=== PATIENT | male | born 1990 | race Caucasian/White ===

== ENCOUNTER 2024-12-04 01:56 | Emergency (ER) | payer OTHER, SELFPAY ==
--- NOTE | ~2024-12-04 | XR_ITS ---
Left Hand Technique: PA, oblique, and lateral views were obtained. Clinical History: 20 swelling Findings: No acute fracture or dislocation is seen. Osseous alignment is anatomic. Joint spaces are p reserved. Probable mild soft tissue swelling at the lateral aspect of the hand. Impression: No osseous or articular abnormality. Mild lateral soft tissue swelling. Reviewed, dictated and finalized at location . Impression: No osseous or articular abnormality. Mild lateral soft tissue swelling.
[2024-12-04 02:01] VITALS: BP 132/76; PULSE 86; RESP 16; TEMP 36.2; O2SAT 100
--- OUTSIDE RECORDS SUMMARY | 2024-12-04 03:52 | XMS_ITS | Patient Health Summary ---
Author Organization [facility] [employer] Address [address] [place] [address] Care Team Providers Care Lead Inspector Name Role Phone Unavailable Primary Care Provider Unavailabl e Note from [facility],non-owned Affiliates and Associated Physician Practices is amultiple site organization consisting of ambulatory clinics and hospital sitesin [place], [place], [place] and [place]. This disclosure is being madepursuant to the Care Everywhere program and may not contain all information available regarding this patient. Last updated 18.[facility] [employer] Medications Be aware that medications may not be up to date on this document. Always verify current medications with the patient. No known medications Active Problems No known active problems Social History Tobacco Use Types Packs/Day Years Used Date Smoking Tobacco: Never Assessed Sex and Gender Information Value Date Recorded Sex Assigned at Not on file Gender Identity Not on file Sexual Orientation Not on file Last Filed Vital Signs Vital Sign Reading Time Taken Comments Blood Pressure 127/71 06/15/2019 2:12 AM CDT Pulse 83 06/15/2019 2:12 AM CDT Temperature 36.6 C (97.9 F) 06/15/2019 2:12 AM CDT Respiratory Rate 16 06/15/2019 2:12 AM CDT Oxygen Saturation 98% 06/15/2019 2:12 AM CDT Inhaled Oxygen Concentration - - Weight 86.2 kg (190 lb) 06/14/2019 11:30 PM CDT Height 175.3 cm (5' 9 ) 06/14/2019 11:30 PM CDT Body Mass Index 28.06 06/14/2019 11:30 PM CDT Procedures * CARDIAC EKG ORDER(Performed 06/16/2019) * URINALYSIS REFLEX MICROSCOPIC REFLEX CULTURE(Performed 06/15/2019) * COMPREHENSIVE METABOLIC PANEL(Performed 06/15/2019) * CBC W AUTO DIFFERENTIAL(Performed 06/15/2019) * EKG 12-LEAD(Performed 06/14/2019) Performed for Dizziness Results * CARDIAC EKG ORDER (06/16/2019 7:59 PM CDT) Narrative 06/16/2019 7:59 PM CDT Ordered by an unspecified provider. Scanned Document CARDIAC SERVICES ORD ERABLES * URINALYSIS REFLEX MICROSCOPIC REFLEX CULTURE (06/15/2019 12:02 AM CDT) Color UA Yellow Straw, Yellow 06/15/2019 12:27 AM CDT [facility] Clarity UA Clear Clear 06/15/2019 12:27 AM CDT [facility] Glucose UA Negative Negative 06/15/2019 12:27 AM CDT [facility] Bilirubin UA Negative Negative 06/15/2019 12:27 AM CDT [facility] Ketone UA Negative Negative 06/15/2019 12:27 AM CDT [facility] Specific [place] UA 1.015 1.005 - 1.030 06/15/2019 12:27 AM CDT [facility] Blood UA Negative Negative 06/15/2019 12:27 AM CDT [facility] pH UA 5.0 5.0 - 8.0 pH 06/15/2019 12:27 AM CDT [facility] Protein UA Negative Negative 06/15/2019 12:27 AM CDT [facility] Urobilinogen UA Negative Negative mg/dL 06/15/2019 12:27 AM CDT [facility] Nitrite UA Negative Negative 06/15/2019 12:27 AM CDT [facility] Leukocyte UA Negative Negative 06/15/2019 12:27 AM CDT [facility] Urine Microscopy Urine microscopy not indicated 06/15/2019 12:27 AM CDT [facility] Reflex Status Culture not indicated 06/15/2019 12:27 AM CDT [facility] Urine URINE SPECIMEN OBTAINED BY CLEAN CATCH PROCEDURE / Unknown Collection / Unknown 06/15/2019 12:02 AM CDT 06/15/2019 12:16 AM CDT Narrative [facility] - 06/15/2019 12:27 AM CDT Kareem Rao MD LAB - URINALYSIS ORD ERABLES [facility] [address] [address] * CBC W AUTO DIFFERENTIAL (06/15/2019 12:01 AM CDT) WBC 7.2 4.4 - 10.7 x10E9/L 06/15/2019 12:22 AM CDT [facility] WBC Corrected 06/15/2019 12:22 AM CDT [facility] RBC 3.99 3.80 - 5.40 x10E12/L 06/15/2019 12:22 AM CDT [facility] Hemoglobin 12.5 12.0 - 17.6 gm/dL 06/15/2019 12:22 AM CDT [facility] Hematocrit 36.9 35.2 - 51.7 % 06/15/2019 12:22 AM CDT [facility] MCV 92.5 80.7 - 98.3 fl 06/15/2019 12:22 AM CDT [facility] MCH 31.3 26.7 - 34.0 pg 06/15/2019 12:22 AM CDT [facility] MCHC 33.9 30.8 - 35.9 gm/dL 06/15/2019 12:22 AM CDT [facility] Platelet Count 217 153 - 416 x10E9/L 06/15/2019 12:22 AM CDT [facility] RDW-CV 12.2 12.1 - 14.9 % 06/15/2019 12:22 AM CDT [facility] MPV 10.1 9.4 - 12.9 fl 06/15/2019 12:22 AM CDT [facility] Neutrophils % 70.4 44.0 - 73.0 % 06/15/2019 12:22 AM CDT [facility] Lymphocytes % 20.6 20.0 - 43.0 % 06/15/2019 12:22 AM CDT [facility] Monocytes % 7.1 5.0 - 13.0 % 06/15/2019 12:22 AM CDT [facility] Eosinophils % 1.3 0.0 - 6.0 % 06/15/2019 12:22 AM CDT [facility] Basophils % 0.3 0.0 - 2.0 % 06/15/2019 12:22 AM CDT [facility] Immature Granulocytes 0.3 0 - 1 % 06/15/2019 12:22 AM CDT [facility] Neutrophil Absolute 5.05 2.01 - 7.14 x10E9/L 06/15/2019 12:22 AM CDT [facility] Lymphocytes Absolute 1.48 1.07 - 3.94 x10E9/L 06/15/2019 12:22 AM CDT [facility] Monocytes Absolute 0.51 0.26 - 1.07 x10E9/L 06/15/2019 12:22 AM CDT [facility] Eosinophils Absolute 0.09 0 - 0.47 x10E9/L 06/15/2019 12:22 AM CDT [facility] Basophils Absolute 0.02 0 - 0.08 x10E9/L 06/15/2019 12:22 AM CDT [facility] Immature Granulocytes Absolute 0.02 0.00 - 0.06 x10E9/L 06/15/2019 12:22 AM CDT [facility] nRBC Auto 0 /100 WBC 06/15/2019 12:22 AM CDT [facility] Blood BLOOD SPECIMEN / Unknown Venipuncture / Unknown 06/15/2019 12:01 AM CDT 06/15/2019 12:17 AM CDT Kareem Rao MD LAB - HEMATOLOGY ORD ERABLES [facility] [address] [place] [address] * (ABNORMAL) COMPREHENSIVE METABOLIC PANEL (06/15/2019 12:01 AM CDT) Pathologist [facility] Glucose 145(H) 74 - 106 mg/dL 06/15/2019 12:41 AM CDT [facility] Sodium 140 136 - 145 mmol/L 06/15/2019 12:41 AM CDT [facility] Potassium 3.4(L) 3.5 - 5.1 mmol/L 06/15/2019 12:41 AM CDT [facility] Chloride 109(H) 98 - 107 mmol/L 06/15/2019 12:41 AM CDT [facility] CO2 21(L) 23 - 31 mmol/L 06/15/2019 12:41 AM CDT [facility] Calcium 8.8 8.4 - 10.2 mg/dL 06/15/2019 12:41 AM CDT [facility] Anion Gap 10 8 - 16 mmol/L 06/15/2019 12:41 AM CDT [facility] BUN 11 8.9 - 20.6 mg/dL 06/15/2019 12:41 AM CDT [facility] Creatinine 1.03 0.73 - 1.18 mg/dL 06/15/2019 12:41 AM CDT [facility] Alkaline Phosphatase 67 40 - 150 U/L 06/15/2019 12:41 AM CDT [facility] ALT 16 13 - 61 U/L 06/15/2019 12:41 AM CDT [facility] AST 17 5 - 34 U/L 06/15/2019 12:41 AM CDT [facility] Protein Total 6.8 6.4 - 8.3 gm/dL 06/15/2019 12:41 AM CDT [facility] Albumin 4.3 3.5 - 5.2 gm/dL 06/15/2019 12:41 AM CDT [facility] Bilirubin Total 0.6 0.2 - 1.2 mg/dL 06/15/2019 12:41 AM CDT [facility] eGFR by MDRD >60 >60 mL/min/1.7 3m2 06/15/2019 12:41 AM CDT [facility] eGFR by MDRD >60 >60 mL/min/1.7 3m2 06/15/2019 12:41 AM CDT [facility] Blood BLOOD SPECIMEN / Unknown Venipuncture / Unknown 06/15/2019 12:01 AM CDT 06/15/2019 12:17 AM CDT Kareem Rao MD LAB - CHEMISTRY NASIR ALONSO [facility] [address] [address] * EKG 12-LEAD (06/14/2019 11:37 PM CDT) Ventricular Rate 96 BPM [facility] Atrial Rate 96 BPM [facility] P-R Interval 148 ms [facility] QRS Duration ms 92 ms [facility] Q-T Interval ms 354 ms [facility] QTC Calculation (Bezet) 447 ms [facility] Calculated P [place] 42 degrees [facility] Calculated R [place] 8 degrees [facility] Calculated T [place] 32 degrees [facility] Interpretation EKG Normal sinus rhythm Normal ECG Confirmed by SHELDON HAILE, ARSLAN ([id number]) on 06/16/2019 3:10:58 PM [facility] 06/14/2019 11:3 7 PM CDT 06/16/2019 3:10 PM CDT [facility]em Rao MD [facility]
--- OUTSIDE RECORDS SUMMARY | 2024-12-04 03:52 | XMS_ITS | Clinical Summary ---
Author Organization [facility] Address [address] [place] [address] Care Team Providers Care Beehive Kiln Charcoal Burner Name Role Phone None, Provider MD Primary Care Provider Unavaila ble Allergies No known active allergies Medications loratadine (CLARITIN) 10 MG tablet Take 1 tablet (10 mg total) by mouth daily. 30 tablet 1 Active ondansetron 4 MG disintegrating tablet Take 1 tablet (4 mg total) by mouth every 8 (eight) hours as needed for Nausea. 20 tablet 1 Active meclizine 25 MG tablet Take 1 tablet (25 mg total) by mouth 3 (three) times daily as needed. 7 tablet 1 Active Social History Tobacco Use Types Packs/Day Years Used Date Smoking Tobacco: Never Smokeless Tobacco: Never Alcohol Use Standard Drinks/Week Comments Not Currently 0 (1 standard drink = 0.6 oz pur e alcohol) Sex and Gender Information Value Date Recorded Sex Assigned at Male 07/11/2021 11:45 AM CDT Legal Sex Male 12:42 PM CDT Gender Identity Male 07/11/2021 11:45 AM CDT Sexual Orientation Not on file Last Filed Vital Signs Vital Sign Reading Time Taken Comments Blood Pressure 137/82 07/11/2021 1:36 PM CDT Pulse 70 07/11/2021 1:36 PM CDT Temperature 36.8 C (98.3 F) 07/11/2021 1:36 PM CDT Respiratory Rate 16 07/11/2021 1:36 PM CDT Oxygen Saturation 100% 07/11/2021 1:36 PM CDT Inhaled Oxygen Concentration - - Weight 94.7 kg (208 lb 12.4 oz) 021 11:46 AM CDT Height 175.3 cm (5' 9 ) 07/11/2021 11:4 6 AM CDT Body Mass Index 30.83 07/11/2021 11:46 AM CDT Plan of Treatment Health Maintenance Due Date Last Done Comments Annual Physical 1992 Hepatitis C 2007 DTaP, Tdap and Td Vaccines ( 1 - Tdap) 2008 Hepatitis B Vaccines (1 of 3 - 19+ 3-dose series) 2008 COVID-19 Vaccine ( - 2023-2 5 season) 2024 Influenza Adult (#1) 2024 HPV Vaccines Aged Out No longer eligi ble based on patient's age to complete this topic Meningococcal B Vaccine Aged Out No l onger eligible based on patient's age to complete this topic Meningococcal Vaccine Aged Out No ann-marie jairo eligible based on patient's age to complete this topic Pneumococcal Vaccine: Pediat rics (0 to 5 Years) and At-Risk Patients (6 to 64 Years) Aged Out No longer eligible b ased on patient's age to complete this topic RSV Immunizations Under 20 Months Aged Out No longer eligible based on patient's age to complete this topic Insurance Care Teams Beehive Kiln Charcoal Burner Relationship Specialty Start Date End Date None, Provider, PCP - General 07/11/21
--- OUTSIDE RECORDS SUMMARY | 2024-12-04 03:52 | XMS_ITS | Clinical Summary ---
Author Organization [facility] [employer] Address [address] [place] [address] Care Team Providers Care Link Trainer Mechanic Name Role Phone Unavailable Primary Care Provider Unavailabl e Source Comments [facility] [employer],non-owned Affiliates and Associated Physician Practices is amultiple site organization consisting of ambulatory clinics and hospital sitesin [place], [place], [place] and [place]. This disclosure is being madepursuant to the Care Everywhere program and may not contain all information available regarding this patient. Last updated 18.[facility] [employer] Medications Be aware that medications may not [...] Mass Index 28.06 06/14/2019 11:30 PM CDT Plan of Treatment Health Maintenance Due Date Last Done Comments HIV SCREENING 2004 HEPATITIS C SCREENING 10/03/2007 DTAP/TDAP/TD VACCINES (1 - Tdap) 2008 HEPATITIS B VACCINE (1 of 3 - 19+ 3-dose series) 2008 COVID-19 VACCINE (2023-2 5 season) 2024 INFLUENZA VACCINE (#1) 2024 DEPRESSION SCREENING 09/24/2024 ZOSTER VACCINE (1 of 2) 2039 HIB VACCINE Aged Out No longer eligi ble based on patient's age to complete this topic HPV VACCINE Aged Out No longer eligi ble based on patient's age to complete this topic MENINGOCOCCAL (Group B) VACC INE SHARED DECISION-MAKING Aged Out No longer eligibl e based on patient's age to complete this topic MENINGOCOCCAL GROUPS A/C/Y/W VACCINE Aged Out No longer eligible b ased on patient's age to complete this topic PNEUMOCOCCAL VACCINE Aged Out No long er eligible based on patient's age to complete this topic
--- OUTSIDE RECORDS SUMMARY | 2024-12-04 03:52 | XMS_ITS | Referral Summary ---
Author Organization [facility] [employer] Address [address] [place] [address] Care Team Providers Care Rn Spine Name Role Phone Unavailable Primary Care Provider Unavailabl e Source Comments [facility] [employer],non-owned Affiliates and Associated Physician Practices is amultiple site organization consisting of ambulatory clinics and hospital sitesin [place], [place], [place] and [place]. This disclosure is being madepursuant to the Care Everywhere program and may not contain all information available regarding this patient. Last updated 18.[facility] [employer] Medications Be aware that medications may not [...] 06/14/2019 11:30 PM CDT Plan of Treatment Not on file
--- NOTE | 2024-12-04 04:08 | ED.GENADULT ---
HPI - General Adult General Chief complaint: Extremity Injury, Upper Stated complaint: left pinky swelling Time Seen by Provider: 12/04/24 03:11 History of Present Illness HPI narrative: Patient is a 34-year-old male who presents the emergency department this evening due to an infection to his left pinky finger. Patient admits that he does pick at his fingernails and yesterday he noticed that the area next to his left pinky fingernail starting to become red and tender. Patient is developing the beginning of what looks like a paronychia/cellulitis with surrounding your edema. Redness does not extend PIP joint. Denies any fevers or chills. Denies any trauma to the left hand. No additional symptoms or concerns at this time. Related Data Allergies Allergy/AdvReac Type Severity Reaction Status Date / Time No Known Allergies Allergy Unverified 08/04/13 15:07 Review of Systems Review of Systems: All systems are reviewed and are negative unless stated otherwise in the HPI. Exam Narrative: General: Alert, awake, afebrile, in no acute distress. HEENT: PERRL, no rhinorrhea, no post nasal drip, oropharynx clear. Neck: Trachea midline, no JVD, no lymphadenopathy. Cardiovascular: Regular rate and rhythm, no murmurs, rubs or gallops, no peripheral edema. Respiratory: Clear to auscultation bilaterally, no tachypnea, no wheezing, no rhonchi, no rubs, no respiratory distress. Abdomen: Soft, nontender, nondistended, no rebound, no guarding, no peritoneal signs. Musculoskeletal: No joint swelling or deformity, normal muscle tone, intact full range of motion at the left pinky finger with intact flexion and extension at the PIP and the IP joint without any decrease in range of motion. Skin: Redness and swelling noted to the tip of the left pinky finger, no abscess. Psychiatric: Alert and oriented, normal behavior and judgment for situation. Neurological: Alert and oriented to person, place, and time. Follows all commands. No focal deficits, speech is clear and fluent. Course Vital Signs Vital signs: Vital Signs Temperature 97.2 F L 12/04/24 02:01 Pulse Rate 86 12/04/24 02:01 Respiratory Rate 16 12/04/24 02:01 Blood Pressure 132/76 12/04/24 02:01 Pulse Oximetry 100 12/04/24 02:01 Temperature 97.2 F L 12/04/24 02:01 Pulse Rate 86 12/04/24 02:01 Respiratory Rate 16 12/04/24 02:01 Blood Pressure 132/76 12/04/24 02:01 Pulse Oximetry 100 12/04/24 02:01 Medical Decision Making MDM Narrative Medical decision making narrative: The patient was evaluated by myself in the emergency department. History is obtained from patient who is an independent historian and physical exam was performed. External medical records were reviewed at this time. Patient was administered his first dose of antibiotic in the emergency department 500 mg of cephalexin. Imaging studies obtained included left hand xray which was independently interpreted by me revealing no acute process, which is pending final radiology interpretation. Differential diagnosis considerations include cellulitis, abscess. Comorbidities impacting this visit include none. I have evaluated and discussed social determinants of health with the patient that could potentially impact subsequent diagnosis and treatment plans. On repeat assessment of the patient, reevaluation revealed that the patient is doing well and is in no acute distress. Patient symptoms have improved since he arrived to our emergency department. Repeat vital signs were all reviewed and noted to be stable. Differential diagnosis and treatment plan were discussed with the patient at bedside. Patient agrees with discussion and after shared medical decision making agrees with discharge. All questions were answered to the patient's satisfaction. Patient will follow up with his PCP in 3-5 days. A script for cephalexin was provided to the patient to take as prescribed for his cellulitis. Patient was provided with strict return precautions and instructed to return to the emergency department if any new or worsening symptoms develop. The patient was discharged in stable condition. Vital Signs Vital Signs: Vital Signs Temperature 97.2 F L 12/04/24 02:01 Pulse Rate 86 12/04/24 02:01 Respiratory Rate 16 12/04/24 02:01 Blood Pressure 132/76 12/04/24 02:01 Pulse Oximetry 100 12/04/24 02:01 Temperature 97.2 F L 12/04/24 02:01 Pulse Rate 86 12/04/24 02:01 Respiratory Rate 16 12/04/24 02:01 Blood Pressure 132/76 12/04/24 02:01 Pulse Oximetry 100 12/04/24 02:01 Discharge Plan Discharge Clinical Impression: Cellulitis of left little finger Patient Disposition: Home, Self-Care Condition: Improved Instructions: Antibiotic Form, Cellulitis (ED) Additional Instructions: Please follow-up with your family doctor within the next 3-5 days. Return to the emergency department if any new or worsening symptoms develop or if the redness extends beyond the skin marker. Take the prescribed antibiotic as instructed. Patient Language: Khmer Prescriptions: New cephalexin 500 mg capsule 500 mg PO Q6H 5 Days Qty: 20 0RF Follow-up/Referrals: PHYSICIAN,ROTOR ASSEMBLER [Primary Care Provider] - Liam Duffy MD [Physician] - 3 Days Time of Disposition: 04:10
[2024-12-04] MEDS: CEPHALEXIN 500 MG CAPSULE PO (04:19)
== END 2024-12-04 04:20 | disposition home or self-care (01) ==
PROVIDERS: Emergency Provider Emergency Medicine
DX: L03.012 Cellulitis of left finger (principal)
CPT/HCPCS: 73130; 99283; A9270

== ENCOUNTER 2025-09-14 07:46 | Emergency (ER) | payer OTHER, SELFPAY ==
--- OUTSIDE RECORDS SUMMARY | 2025-09-14 07:50 | XMS_ITS | Clinical Summary ---
Author Organization [facility] Address [address] [place] [address] Care Team Providers Care Tip Mender Name Role Phone None, Provider MD Primary [...] 11:46 AM CDT Height 175.3 cm (5' 9) 07/11/2021 11:4 6 AM CDT Body Mass Index 30.83 07/11/2021 11:46 AM CDT Plan of Treatment Health Maintenance Due Date Last Done Comments Annual Physical 1992 Hepatitis C 2007 DTaP, Tdap and Td Vaccines ( 1 - Tdap) 2008 Hepatitis B Vaccines (1 of 3 - 19+ 3-dose series) 2008 HPV Vaccines (1 - 3-dose SCD M series) 2016 COVID-19 Vaccine (1 - 2024-2 6 season) 2025 Influenza Adult (#1) 2025 Hepatitis A Vaccines Aged Out No long er eligible based on patient's age to complete this topic Meningococcal B Vaccine Aged Out No l onger eligible based on patient's age to complete this topic Meningococcal Vaccine Aged Out No ann-marie jairo eligible based on patient's age to complete this topic Pneumococcal Vaccine: Pediat rics (0 to 5 Years) and At-Risk Patients (6 to 49 Years) Aged Out No longer eligible b ased on patient's age to complete this topic RSV Immunizations Under 20 Months Aged Out No longer eligible based on patient's age to complete this topic Insurance [facility] Care Teams Tip Mender Relationship Specialty Start Date End Date None, Provider, PCP - General 07/11/21
--- OUTSIDE RECORDS SUMMARY | 2025-09-14 07:50 | XMS_ITS | Clinical Summary ---
Author Organization [facility] [employer] Address [address] [place] [address] Care Team Providers Care Cattle Broker Name Role Phone Unavailable Primary Care Provider Unavailabl e Source Comments [facility] [employer],non-owned Affiliates and Associated Physician Practices is amultiple site organization consisting of ambulatory clinics and hospital sitesin [place], [place], [place] and [place]. This disclosure is being madepursuant to the Care Everywhere program and may not contain all information available regarding this patient. Last updated 18.[facility] [employer] Medications * Be aware that medications may not be up to date on this document. Alwaysverify current medications with the patient. No known medications Active Problems No known active problems Social History Tobacco Use Types Packs/Day Years Used Date Smoking Tobacco: Never Assessed Sex and Gender Information Value Date Recorded Sex Assigned at Not on file Legal Sex Male 11:23 PM CDT Gender Identity Not on file Sexual Orientation [...] 11:30 PM CDT Height 175.3 cm (5' 9) 06/14/2019 11:30 PM CDT Body Mass Index 28.06 06/14/2019 11:30 PM CDT Plan of Treatment Health Maintenance Due Date Last Done Comments HIV SCREENING 2004 HEPATITIS C SCREENING 10/03/2007 DTAP/TDAP/TD VACCINES (1 - Tdap) 2008 HEPATITIS B VACCINE (1 of 3 - 19+ 3-dose series) 2008 HPV VACCINE (1 - 3-dose SCDM series) 2016 DEPRESSION SCREENING 09/24/2024 COVID-19 VACCINE (1 - 2024-2 6 season) 2025 INFLUENZA VACCINE (#1) 2025 ZOSTER VACCINE (1 of 2) 2039 HIB [...] patient's age to complete this topic Insurance [employer]
[2025-09-14 07:57] VITALS: BP 139/86; PULSE 92; RESP 16; TEMP 36.8; O2SAT 99
--- NOTE | 2025-09-14 08:57 | ED_ITS ---
HPI - General Adult General Chief complaint: Dental/Oral Stated complaint: jaw pain Time Seen by Provider: 09/14/25 08:19 History of Present Illness HPI narrative: 34-year-old male presenting to the emergency department for evaluation of dental pain. Patient began having dental pain on Sunday and pain has persisted. Patient to be seen yesterday but the emergency department was too busy so he left without being seen. patient does not have follow-up with a dentist scheduled Related Data Allergies Allergy/AdvReac Type Severity Reaction Status Date / Time No Known Allergies Allergy Verified 09/14/25 08:01 Review of Systems Review of Systems: All systems reviewed & are unremarkable except as noted in HPI and below Exam Narrative: APPEARANCE: Well appearing, no pain, no distress, well-nourished. HEAD: normocephalic, atraumatic. EYES: PERRLA/EOMI, conjunctivae clear. NOSE: Normal no drainage EARS:TMS clear with good light reflex. THROAT: Pharynx clear, no exudate. NECK: Supple. No adenopathy, no masses. mouth: Dental decay for lower front teeth, no abscess, no trismus RESPIRATORY: Airway patent, respirations nonlabored. Clear to auscultation bilaterally, no rales, rhonchi, wheezing. CARDIOVASCULAR: Regular rate and rhythm without murmurs rubs or gallops. ABDOMINAL: Soft, nontender, nondistended, normal bowel sounds MUSCULOSKELETAL: Moves all extremities. Strength/ROM intact, No edema, No calf tenderness. NEURO: Alert. Cranial nerves II through XII intact. Good gait. Good coordination SKIN: Warm, dry. Normal Color Course Vital Signs Vital signs: Vital Signs Temperature 98.3 F 09/14/25 07:57 Pulse Rate 92 09/14/25 07:57 Respiratory Rate 16 09/14/25 07:57 Blood Pressure 139/86 09/14/25 07:57 Pulse Oximetry 99 09/14/25 07:57 Oxygen Delivery Room Air 09/14/25 07:57 Temperature 98 F 09/14/25 09:06 Pulse Rate 85 09/14/25 09:06 Respiratory Rate 16 09/14/25 09:06 Blood Pressure 116/85 09/14/25 09:06 Pulse Oximetry 100 09/14/25 09:06 Oxygen Delivery Room Air 09/14/25 07:57 [facility] Narrative Medical decision making narrative: 34-year-old male presents emergency department For dental pain. No evidence of acute abscess. Patient was started on antibiotics for suspected dental caries. Patient also does have a component of gingivitis. Patient was provided numbers to call for outpatient dental follow-up. All questions concerns were addressed. Differential Diagnosis Differential Diagnosis: Gingivitis, dental caries, dental abscess, trismus Discharge Plan Discharge Clinical Impression: Toothache, Dental caries Patient Disposition: Home Condition: Stable Instructions: Antibiotic Form, Toothache (ED) Additional Instructions: Tylenol and ibuprofen for pain control. Antibiotic as directed until completed. Have close follow-up with your dentist. If you have any worsening symptoms then please call or return to emergency department. Patient Language: Uzbek Prescriptions: New amoxicillin-pot clavulanate 875-125 mg tablet 1 tablet PO Q12H 7 Days Qty: 14 0RF No Action cephalexin 500 mg capsule 500 mg PO Q6H 5 Days Qty: 20 0RF Follow-up/Referrals: PHYSICIAN,BEST WORKER [Primary Care Provider, Internal Medicine]
[2025-09-14 09:06] VITALS: BP 116/85; PULSE 85; RESP 16; TEMP 36.6; O2SAT 100
--- OUTSIDE RECORDS SUMMARY | 2025-09-14 10:04 | XMS_ITS | Clinical Summary ---
Author Organization [facility] Address [address] [place] [address] Care Team Providers Care Sweet Dough Mixer Name Role Phone Unavailable Primary Care Provider Unavailabl e Source Comments [facility],non-owned Affiliates and Associated Physician Practices is amultiple site organization consisting of ambulatory clinics and hospital sitesin [place], [place], [place] and [place]. This disclosure is being madepursuant to the Care Everywhere program and may not contain all information available regarding this patient. Last updated 18.[facility] Medications * Be aware that medications may [...]
== END 2025-09-14 09:28 | disposition home or self-care (01) ==
PROVIDERS: Emergency Provider Emergency Medicine
DX: K02.9 Dental caries, unspecified (principal)
CPT/HCPCS: 99283; A9270